=== PATIENT | male | born 1975 | race Two or more races ===

== ENCOUNTER 2020-10-13 08:40 | Emergency (ER) | payer OTHER ==
[~2020-10-13] VITALS: Ht 176.5 cm; Wt 105.8 kg
[2020-10-13 08:53] VITALS: BP 112/74
== END 2020-10-13 10:04 | disposition home or self-care (01) ==
LOC: ER 08:41
DX: S90.111A Contusion of right great toe without damage to nail, initial encounter (principal); X50.9XXA Other and unspecified overexertion or strenuous movements or postures, initial encounter; Y93.89 Activity, other specified; Y92.89 Other specified places as the place of occurrence of the external cause; Y99.8 Other external cause status
CPT/HCPCS: 73660; 99283

== ENCOUNTER 2020-10-18 14:15 | Emergency (ER) | payer OTHER ==
[~2020-10-18] VITALS: Ht 177.8 cm; Wt 10.4 kg
[2020-10-18 14:24] VITALS: BP 121/72
--- NOTE | 2020-10-18 16:04 | NUR ---
PT C/O PAIN LEFT KNEE
[2020-10-18] MEDS ORDERED: DICL100G15 TOP (16:14)
[2020-10-18] MEDS ORDERED: ketorolac tromethamine 15mg/ml inj. IM ONE (16:15)
== END 2020-10-18 16:56 | disposition home or self-care (01) ==
LOC: ER 14:17
DX: M23.92 Unspecified internal derangement of left knee (principal); M25.562 Pain in left knee; Z79.899 Other long term (current) drug therapy
CPT/HCPCS: 29505; 73564; 96372; 99283; J1885